=== PATIENT | female | born 1975 | race Caucasian/White ===

== ENCOUNTER 2018-05-09 18:16 | Emergency (ER) | payer MEDICARE ==
[2018-05-09 18:52] VITALS: BP 95/56
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
--- NOTE | 2018-05-10 08:49 | UC ---
- Progress Note Progress Note: Patient Name: JOSE LION Medical Record#: [id number] Ordering Physician: Danilo Rubi MD Acct.#: [id number] : 1975 Age: 43 Sex: F Location: [facility] Exam Date: 05/09/181901 ADM Status: [facility] ER Order Information: HIP LEFT 2 VIEWS AND PELVIS Accession Number: [id number] CPT: 91394 Indication: Left hip pain at the greater trochanteric region. 2 views of the left hip and an AP view of the pelvis demonstrates pelvic ring to be intact. There is no fracture or dislocation. No other bone or joint abnormality is identified. IMPRESSION: No fracture of the left hip is noted. <Electronically signed by Nisreen Skinner MD in OV> 05/10/18807 Dictated By: Nisreen Skinner MD Dictated Date/Time: 05/10/18807 Transcribed Date/Time: 05/10/18804 Copy to: CC:Rose CASTELLANOS; Danilo Rubi MD Imaging - [facility] [address] [place] [address] ph ([phone]) ph ([phone]) ph ([phone]) This report is only to be considered final once signed by the Provider(s) as displayed in the "<Electronically Signed by >" field (s). Absence of a signature indicates the report is in a draft status and still needs to be finalized. In the event this document was created by someone other than the signing Provider, the individual initiating the document will be listed in the "Entered by:" or "Dictated by:" brown. 1 of 1 Course/Dx - Diagnoses Provider Diagnoses: Greater trochanteric bursitis of left hip, Left knee pain Discharge - Sign-Out/Discharge Documenting (check all that apply): Patient Departure All imaging exams completed and their final reports reviewed: Yes - Discharge Plan Condition: Stable Disposition: HOME Prescriptions: HYDROcodone/ACETAMIN 5-325 MG* [[place] 5-325 TAB*] 1 tab PO Q4H PRN #20 tab MDD 2 PRN Reason: Pain Patient Education Materials: Hip Bursitis (ED), Knee Immobilizer (ED) Referrals: Rose Silverio PA [Primary Care Provider] - As Soon As Possible Additional Instructions: Opioid-containing medications can cause drowsiness and sedation. You t should not drive or operate machinery or similar activities while taking this medication. Opioids can also cause a positive drug screen, and can be habit- forming. You should follow the instructions exactly and not take any extra medication. Opioid medications should be stored in a secure manner to avoid diversion or theft. You should not drink alcohol while taking these medications use the hydrocone sparingly the offical XR readings are pending I think your knee pain is due to an altered gait - Billing Disposition and Condition Condition: STABLE Disposition: Home
== END 2018-05-09 20:04 | disposition home or self-care (01) ==
LOC: UCCORT 18:16
DX: M70.62 Trochanteric bursitis, left hip (principal); M25.562 Pain in left knee; I10 Essential (primary) hypertension; J45.909 Unspecified asthma, uncomplicated; F31.9 Bipolar disorder, unspecified; K21.9 Gastro-esophageal reflux disease without esophagitis; F17.210 Nicotine dependence, cigarettes, uncomplicated; Z79.51 Long term (current) use of inhaled steroids; Z79.899 Other long term (current) drug therapy; Z91.09 Other allergy status, other than to drugs and biological substances; Z91.040 Latex allergy status; Z88.8 Allergy status to other drugs, medicaments and biological substances; Z91.011 Allergy to milk products
CPT/HCPCS: 99213; G0463